=== PATIENT | female | born 1940 | race Caucasian/White ===

== ENCOUNTER 2018-01-10 16:30 | Emergency (ER) | payer MEDICARE, BC ==
[~2018-01-10] VITALS: Ht 154.9 cm; Wt 61.4 kg
[~2018-01-10 16:30] MED LIST: ADLT ASA LOW81 MG PO; ALEVE220 M1 PO; ALLEGRA-D 2424 HOUR PO; ALPRAZOLAM0.25 MG PO; AMLODIPINE10 MG PO; AMLODIPINE5 MG PO; AMOXICILLIN500 M2 PO; ASPIRIN81 M2 OR; AUGMENTIN500TAB PO; CALCIUM + D600 MG PO; CALCIUM/D PO; CEPHALEXIN500 MG PO; CLONAZEPAM1 MG OR; CLONAZEPAM2 MG PO; COLACE100 MG PO; COQ10200 MG PO; COZAAR50 MG OR; DOCUSATE CAL240 MG PO; FIORICET PO; FISH OIL1000 MG PO; FLORASTOR250 M1 PO; FLUARIX QUADRIV1 IN1 IM; FLUARIX QUADRIV1 IN2 IM; FLULAVAL IM; HYDRALAZINE25 MG PO; HYDROCODONE/ACE1 TAB PO; ICY HOT; LAMISIL250 MG PO; LASIX 40 MG TAB40 MG PO; LEVOTHROID100 MCG PO; LEVOTHYROXIN100 MC1 PO; LEVOTHYROXIN88 MC1 PO; LEVOTHYROXIN88 MCG PO; LORTAB 10 PO; LORTAB 5 OR; LORTAB 5 PO; LORTAB 7.5 PO; LYRICA50 MG PO; MEDDOSEPAK PO; MEDROL4 M1 PO; MELOXICAM7.5 MG OR; METOPROL TAR50 MG PO; METOPROLOL TART50 MG PO; MINOXIDIL2.5 MG PO; MULTIVITAMIN PO; NORCO1 TAB PO; PENTOXIFYLLI400 MG OR; POT CHLORIDE10 ME1 PO; PREDNISONE20 MG PO; RESTORIL15 MG PO; TAM75CAP PO; TIZANIDINE4 MG PO; TYLENOL PM PO; VESICARE5 MG OR; ZELBORAF240 MG PO; ZITHROMAX500 MG PO; flexeril PO
[2018-01-10 19:33] VITALS: BP 143/88
== END 2018-01-10 19:33 | disposition home or self-care (01) ==
LOC: ED 16:30
PROC: 0HQ0XZZ Repair Scalp Skin, External Approach (ICD-10-PCS; principal; 2018-01-10)
DX: S01.01XA Laceration without foreign body of scalp, initial encounter (principal); I10 Essential (primary) hypertension; G11.4 Hereditary spastic paraplegia; W18.30XA Fall on same level, unspecified, initial encounter; Y92.009 Unspecified place in unspecified non-institutional (private) residence as the place of occurrence of the external cause; Z95.5 Presence of coronary angioplasty implant and graft

== ENCOUNTER 2019-04-10 07:19 | Emergency (ER) | payer MEDICARE, BC ==
[~2019-04-10] VITALS: Ht 154.9 cm; Wt 70.0 kg
[2019-04-10 07:51] LABS: HEMATOCRIT 42.5 % (37.0-47.0); HEMOGLOBIN 13.5 g/dl (12.0-16.0); IMMATURE GRANULOCYTES 0.1 % (0.0-5.0); MEAN CELL VOLUME 89.1 fL CALC (80.0-100.0); MEAN CORPUSCULAR HGB 28.3 pG CALC (26.0-32.0); MEAN CORPUSCULAR HGB CONC 31.8 g/L CALC (32.0-36.0); NEUT# 4.63 thou/uL (2.00-7.15); RED BLOOD COUNT 4.77 mill/uL (4.20-5.60)
[2019-04-10 08:11] LABS: ANION GAP 14 (6-22 (CALC)); BUN 24 mg/dL (8-23); BUN/CREATININE RATIO 29 (12-20 (CALC)); CARBON DIOXIDE 29 mmol/l (22-30); CHLORIDE 104 mmol/l (95-108); CREATININE 0.8 mg/dL (0.5-1.0); GFR > 60 ML/MIN (>=60 (CALC)); GFR FOR AFR.AMER. > 60 ML/MIN (>=60 (CALC)); POTASSIUM 4.5 mmol/l (3.5-5.1); SODIUM 142 mmol/l (137-146)
[2019-04-10 09:20] VITALS: BP 132/103
== END 2019-04-10 10:04 ==
LOC: ED 07:19
PROVIDERS: Family Medicine
DX: R55 Syncope and collapse (principal); M79.672 Pain in left foot; I10 Essential (primary) hypertension; Z95.5 Presence of coronary angioplasty implant and graft

== ENCOUNTER 2019-07-02 20:09 | Observation (INO) | payer MEDICARE, BC ==
[~2019-07-02] VITALS: Ht 154.9 cm; Wt 65.8 kg
[2019-07-02] MEDS ORDERED: VITAMIN B-12500 MCG PO (20:20)
[2019-07-02] MEDS ORDERED: MACROBID100 MG PO (20:20)
[2019-07-02 21:01] LABS: HEMATOCRIT 41.8 % (37.0-47.0); HEMOGLOBIN 13.2 g/dl (12.0-16.0); IMMATURE GRANULOCYTES 0.6 % (0.0-5.0); MEAN CELL VOLUME 91.3 fL CALC (80.0-100.0); MEAN CORPUSCULAR HGB 28.8 pG CALC (26.0-32.0); MEAN CORPUSCULAR HGB CONC 31.6 g/L CALC (32.0-36.0); NEUT# 13.56 thou/uL (2.00-7.15); RED BLOOD COUNT 4.58 mill/uL (4.20-5.60); RED CELL DISTRI WIDTH 14.6 % (11.5-15.5)
[2019-07-02 21:11] LABS: URINE BILIRUBIN - DIPSTICK NEGATIVE (NEGATIVE); URINE BLOOD DIPSTICK TRACE-LYSED (NEGATIVE); URINE COLOR YELLOW; URINE GLUCOSE - DIPSTICK NEGATIVE (NEGATIVE); URINE KETONE NEGATIVE (NEGATIVE); URINE PH 5.5 (4.5-8.0); URINE PROTEIN - DIPSTICK TRACE mg/dL (NEG-TRACE); URINE SPECIFIC GRAVITY 1.015; URINE UROBILINOGEN - DIPSTICK 0.2 E.U./dL (0.2)
[2019-07-02 21:19] LABS: ALKALINE PHOSPHATASE 78 u/l (38-126); BILIRUBIN, TOTAL 0.4 mg/dL (0.0-1.4); BUN 25 mg/dL (8-23); BUN/CREATININE RATIO 27 (12-20 (CALC)); CHLORIDE 102 mmol/l (95-108); GFR 53 ML/MIN (>=60 (CALC)); GFR FOR AFR.AMER. > 60 ML/MIN (>=60 (CALC)); LIPASE 22 u/l (23-300); POTASSIUM 3.9 mmol/l (3.5-5.1); SGOT/AST 18 u/l (9-36); TOTAL PROTEIN 5.9 g/dL (6.3-8.2)
[2019-07-02 21:20] LABS: ALBUMIN 3.2 g/dL (3.2-5.0); ANION GAP 13 (6-22 (CALC)); CARBON DIOXIDE 23 mmol/l (22-30); SODIUM 134 mmol/l (137-146)
[2019-07-02 21:21] LABS: URINE LEUK ESTERASE SMALL (NEGATIVE); URINE NITRITE - DIPSTICK POSITIVE (Negative)
[2019-07-02 21:26] LABS: URINE BACTERIA MODERATE hpf; URINE SQUAMOUS EPITHELIAL CELL FEW EPI/hpf (0-FEW); URINE WBC 20-50 WBC/hpf (0-5)
[2019-07-02 23:24] VITALS: BP 123/57
[2019-07-03 04:00] VITALS: BP 113/55
[2019-07-03 05:34] LABS: HEMOGLOBIN 11.8 g/dl (12.0-16.0); IMMATURE GRANULOCYTES 0.4 % (0.0-5.0); MEAN CELL VOLUME 90.5 fL CALC (80.0-100.0); MEAN CORPUSCULAR HGB 28.9 pG CALC (26.0-32.0); MEAN CORPUSCULAR HGB CONC 31.9 g/L CALC (32.0-36.0); NEUT# 9.39 thou/uL (2.00-7.15); RED BLOOD COUNT 4.09 mill/uL (4.20-5.60); RED CELL DISTRI WIDTH 14.5 % (11.5-15.5)
[2019-07-03 05:56] LABS: ANION GAP 10 (6-22 (CALC)); BUN 24 mg/dL (8-23); BUN/CREATININE RATIO 28 (12-20 (CALC)); CARBON DIOXIDE 25 mmol/l (22-30); CHLORIDE 105 mmol/l (95-108); CREATININE 0.8 mg/dL (0.5-1.0); GFR > 60 ML/MIN (>=60 (CALC)); GFR FOR AFR.AMER. > 60 ML/MIN (>=60 (CALC)); POTASSIUM 4.3 mmol/l (3.5-5.1); SODIUM 136 mmol/l (137-146)
[2019-07-03 08:43] VITALS: BP 126/55
[2019-07-03 11:20] VITALS: BP 116/50
[2019-07-03 15:55] VITALS: BP 135/67
[2019-07-03 18:34] VITALS: BP 140/71
[2019-07-04] VITALS: BP 145/71
[2019-07-04 05:01] VITALS: BP 156/66
[2019-07-04 05:35] LABS: HEMATOCRIT 40.1 % (37.0-47.0); HEMOGLOBIN 12.7 g/dl (12.0-16.0); IMMATURE GRANULOCYTES 0.9 % (0.0-5.0); MEAN CELL VOLUME 90.7 fL CALC (80.0-100.0); MEAN CORPUSCULAR HGB 28.7 pG CALC (26.0-32.0); MEAN CORPUSCULAR HGB CONC 31.7 g/L CALC (32.0-36.0); NEUT# 6.35 thou/uL (2.00-7.15); RED BLOOD COUNT 4.42 mill/uL (4.20-5.60); RED CELL DISTRI WIDTH 14.6 % (11.5-15.5)
[2019-07-04 06:08] LABS: ANION GAP 12 (6-22 (CALC)); BUN 18 mg/dL (8-23); BUN/CREATININE RATIO 21 (12-20 (CALC)); CARBON DIOXIDE 23 mmol/l (22-30); CHLORIDE 107 mmol/l (95-108); CREATININE 0.9 mg/dL (0.5-1.0); GFR 60 ML/MIN (>=60 (CALC)); GFR FOR AFR.AMER. > 60 ML/MIN (>=60 (CALC)); POTASSIUM 3.9 mmol/l (3.5-5.1); SODIUM 138 mmol/l (137-146)
[2019-07-04 08:20] VITALS: BP 163/61
[2019-07-04 11:02] VITALS: BP 171/73
[2019-07-04 15:50] VITALS: BP 166/78
[2019-07-04 18:58] VITALS: BP 146/71
[2019-07-05 00:10] VITALS: BP 96/56
[2019-07-05 04:20] VITALS: BP 180/74
[2019-07-05 05:14] LABS: HEMATOCRIT 38.9 % (37.0-47.0); HEMOGLOBIN 12.4 g/dl (12.0-16.0); IMMATURE GRANULOCYTES 1.6 % (0.0-5.0); MEAN CELL VOLUME 90.7 fL CALC (80.0-100.0); MEAN CORPUSCULAR HGB 28.9 pG CALC (26.0-32.0); MEAN CORPUSCULAR HGB CONC 31.9 g/L CALC (32.0-36.0); NEUT# 8.68 thou/uL (2.00-7.15); RED BLOOD COUNT 4.29 mill/uL (4.20-5.60); RED CELL DISTRI WIDTH 14.5 % (11.5-15.5)
[2019-07-05 05:33] LABS: ANION GAP 11 (6-22 (CALC)); BUN 15 mg/dL (8-23); BUN/CREATININE RATIO 19 (12-20 (CALC)); CARBON DIOXIDE 27 mmol/l (22-30); CHLORIDE 105 mmol/l (95-108); CREATININE 0.8 mg/dL (0.5-1.0); GFR > 60 ML/MIN (>=60 (CALC)); GFR FOR AFR.AMER. > 60 ML/MIN (>=60 (CALC)); MAGNESIUM 2.1 mg/dL (1.6-2.3); SODIUM 139 mmol/l (137-146)
[2019-07-05 05:48] VITALS: BP 140/62
[2019-07-05 07:06] VITALS: BP 171/74
[2019-07-05 11:05] VITALS: BP 145/64
[2019-07-05] MEDS ORDERED: MEDDOSEPAK PO (12:20)
[2019-07-05] MEDS ORDERED: OMNICEF300 MG PO (12:20)
[2019-07-05] MEDS ORDERED: KLONOPIN2 MG PO (12:21)
[2019-07-05 15:05] VITALS: BP 135/60
== END 2019-07-05 17:48 | disposition home health service (06) ==
LOC: ED 20:09 → ED-I 21:25 → ED 21:42 → MS2 21:43
PROVIDERS: Nurse Practitioner Family; ADMIT Internal Medicine; ATTEND Internal Medicine
DX: N39.0 Urinary tract infection, site not specified (principal); J18.9 Pneumonia, unspecified organism; I10 Essential (primary) hypertension; G11.4 Hereditary spastic paraplegia; L03.116 Cellulitis of left lower limb; L03.115 Cellulitis of right lower limb; R09.02 Hypoxemia; E03.9 Hypothyroidism, unspecified; I25.10 Atherosclerotic heart disease of native coronary artery without angina pectoris; M54.5 Low back pain; N39.41 Urge incontinence; L27.1 Localized skin eruption due to drugs and medicaments taken internally; T37.8X5A Adverse effect of other specified systemic anti-infectives and antiparasitics, initial encounter; B96.20 Unspecified Escherichia coli [E. coli] as the cause of diseases classified elsewhere; Z95.5 Presence of coronary angioplasty implant and graft; Z87.891 Personal history of nicotine dependence
CPT/HCPCS: G0378; J1650; Q9967

== ENCOUNTER 2019-07-29 04:57 | Inpatient (IN) | payer MEDICARE, BC ==
[~2019-07-29] VITALS: Ht 154.9 cm; Wt 65.0 kg
[~2019-07-29 04:57] MED LIST changes: +KLONOPIN2 MG PO; +MACROBID100 MG PO; +OMNICEF300 MG PO; +VITAMIN B-12500 MCG PO
[2019-07-29 06:07] LABS: HEMATOCRIT 37.8 % (37.0-47.0); HEMOGLOBIN 11.9 g/dl (12.0-16.0); IMMATURE GRANULOCYTES 0.4 % (0.0-5.0); MEAN CELL VOLUME 91.1 fL CALC (80.0-100.0); MEAN CORPUSCULAR HGB 28.7 pG CALC (26.0-32.0); MEAN CORPUSCULAR HGB CONC 31.5 g/L CALC (32.0-36.0); NEUT# 11.19 thou/uL (2.00-7.15); RED BLOOD COUNT 4.15 mill/uL (4.20-5.60); RED CELL DISTRI WIDTH 15.3 % (11.5-15.5)
[2019-07-29 06:18] LABS: ALBUMIN 3.5 g/dL (3.2-5.0); ALKALINE PHOSPHATASE 88 u/l (38-126); ANION GAP 12 (6-22 (CALC)); BILIRUBIN, TOTAL 0.4 mg/dL (0.0-1.4); BUN 18 mg/dL (8-23); BUN/CREATININE RATIO 23 (12-20 (CALC)); CARBON DIOXIDE 27 mmol/l (22-30); CHLORIDE 102 mmol/l (95-108); CREATININE 0.8 mg/dL (0.5-1.0); GFR > 60 ML/MIN (>=60 (CALC)); GFR FOR AFR.AMER. > 60 ML/MIN (>=60 (CALC)); LIPASE 17 u/l (23-300); POTASSIUM 3.9 mmol/l (3.5-5.1); SGOT/AST 13 u/l (9-36); SODIUM 137 mmol/l (137-146); TOTAL PROTEIN 6.3 g/dL (6.3-8.2)
[2019-07-29 06:26] LABS: AMYLASE < 30 u/l (30-110)
--- NOTE | 2019-07-29 06:50 | NUR ---
REPORT FROM RUFINO SWAIN. PT IN CT SCAN AT THIS TIME.
--- NOTE | 2019-07-29 07:30 | NUR ---
PT DENIES ANY DIARRHEA AT THIS TIME. PT AWARE OF NEED FOR URINE SAMPLE. PT REFUSED PURE WICK AND WAS PLACED ON BED BASILIO. CALL GEO PENA.
--- NOTE | 2019-07-29 07:45 | NUR ---
PT INCONTINENT OF URINE. LINENS CHAGED AND PT CLEANED. PURE WICK PLACED AND URINE SAMPLE COLLECTED.
[2019-07-29 07:52] LABS: URINE BILIRUBIN - DIPSTICK NEGATIVE (NEGATIVE); URINE BLOOD DIPSTICK NEGATIVE (NEGATIVE); URINE COLOR YELLOW; URINE GLUCOSE - DIPSTICK NEGATIVE (NEGATIVE); URINE KETONE NEGATIVE (NEGATIVE); URINE LEUK ESTERASE NEGATIVE (NEGATIVE); URINE NITRITE - DIPSTICK NEGATIVE (Negative); URINE PROTEIN - DIPSTICK NEGATIVE (NEG-TRACE); URINE SPECIFIC GRAVITY <=1.005; URINE UROBILINOGEN - DIPSTICK 0.2 E.U./dL (0.2)
--- NOTE | 2019-07-29 07:55 | NUR ---
PT NOT ON 02 AT HOME O2 TITRATED DOWN AND 02 SATS DROPPED TO 89% MD NOTIFIED. WILL DO ABG ON ROOM AIR.
[2019-07-29 08:06] LABS: C. DIFFICILE TOXIN A&B POSITIVE (NEGATIVE)
[2019-07-29] MEDS ORDERED: LEVOTHYROXIN100 MCG PO (08:23)
[2019-07-29] MEDS ORDERED: DITROPAN5 MG/TA1 PO (08:23)
--- NOTE | 2019-07-29 08:30 | NUR ---
SAO2 97% 3L ON NC. PT RESTING COMFORTABLY IN STRETCHER AND DENIES ANY NEEDS AT THIS TIME. CALL GUARDADO WITHIN REACH.
--- NOTE | 2019-07-29 09:30 | NUR ---
LISSY FROM DIRECTOR HOME AT BEDSIDE TO DO PORTABLE US.
--- NOTE | 2019-07-29 09:45 | NUR ---
REPORT TO RUFINO MENDIETA.
--- NOTE | 2019-07-29 09:45 | NUR ---
PT MEDICATED WITH ABX PRESCRIBED. PT REPORTS 02/06 ABD CRAMPING AT THIS TIME. CALL GUARDADO WITHIN REACH.
--- NOTE | 2019-07-29 09:52 | NUR ---
REPORT GIKERON BY ETHAN
--- NOTE | 2019-07-29 11:06 | NUR ---
CALLED ICU FOR PT REPORT AND GHAZAL STATED THEY WILL CALL BACK IN A FEW MINS.
--- NOTE | 2019-07-29 11:07 | NUR ---
PT RESTING IN STRETCHER, DENIES ANY NEEDS AT THIS TIME.
--- NOTE | 2019-07-29 11:10 | NUR ---
CALLED ICU AND GHAZAL STATED NOT BEING ABLE TO GIVE REPORT BECAUSE IT IS JUST TWO OF THEM
--- NOTE | 2019-07-29 11:30 | NUR ---
PT TRANSPORTED TO ICU 5 VIA STRETCHER MAINTAINING CONTACT PRE. PT IS SABLE AND IN NO DISTRESS. CARE ASSUMED TO ASHLEY
[2019-07-29 11:40] VITALS: BP 145/49
--- NOTE | 2019-07-29 11:40 | NUR ---
female pt received to ICU bed 5 as Med/Surg overflow; no apparent distress noted; pt unable to transfer self to bed; transferred to bed x3 staff; admission assessment completed at this time; pt alert and oriented; denies pain at current; c/c of diarrhea and abd cramps x2 weeks per pt; no n/v noted at this time; resp even and unlabored; lungs clear/ rhonchi bases; skin color wnl; o2 per nc; track inspector cough noted; hr reg; weak pedal pulses; 1+ edema noted to ble; sr on monitor; abd soft with bs present; lg loose bm noted/ pericare per staff at this time; urinary incont noted; pt declined purewick catheter; #18 flushed and patent; no redness or edema noted at site; slight redness noted to ble; repositioned; plan of care/ meds explained; call light within reach; will continue to monitor
--- NOTE | 2019-07-29 14:05 | NUR ---
awake in bed; pericare for lg urinary incont; purewick offered for accurate urine output and declined; sr on monitor; iv intact and patent; call light within reach
[2019-07-29 16:00] VITALS: BP 133/64
--- NOTE | 2019-07-29 16:00 | NUR ---
awake in bed conversing on cell phone; no apparent distress noted; pt offers no complaints; iv intact and patent; sr on monitor; call light within reach
--- NOTE | 2019-07-29 18:30 | NUR ---
awake in bed conversing on cell phone; no apparent distress noted; iv intact and patent; no redness or edema noted at site; sr on monitor; call light within reach
[2019-07-29 19:30] VITALS: BP 142/56
--- NOTE | 2019-07-29 19:30 | NUR ---
awake. no acute distress. o2 cont per nc. quality assurance monitor chassis shows sinus rhythm pvcs. voided incont of urine. emilie care given, diaper changed. fall & contact plus precautions cont.
--- NOTE | 2019-07-29 21:10 | NUR ---
klonopin 1mg po given per request for sleep.
--- NOTE | 2019-07-29 21:11 | NUR ---
PT MEDICATED ORDERS PROVIDE. PT ASSISTED W/PO FLUIDS. DENIES ANY OTHER NEEDS AT THIS TIME. CALL LIGHT LEFT W/IN REACH, IVF RUNNING TO #22LH.
[2019-07-30] VITALS: BP 135/60
--- NOTE | 2019-07-30 00:01 | NUR ---
awakens easily. no resp diff. school lunch monitor shows sinus rhythm 1st degree avb pvcs hr 68.
[2019-07-30 04:00] VITALS: BP 106/51
--- NOTE | 2019-07-30 04:00 | NUR ---
eyes closed. no apparent distress. media monitor shows sinus mei 1st degree avb pvcs hr 52.
--- NOTE | 2019-07-30 05:00 | NUR ---
lab here. blood drawn.
[2019-07-30 05:31] LABS: HEMATOCRIT 38.4 % (37.0-47.0); HEMOGLOBIN 12.1 g/dl (12.0-16.0); MEAN CELL VOLUME 90.8 fL CALC (80.0-100.0); MEAN CORPUSCULAR HGB 28.6 pG CALC (26.0-32.0); MEAN CORPUSCULAR HGB CONC 31.5 g/L CALC (32.0-36.0); RED BLOOD COUNT 4.23 mill/uL (4.20-5.60); RED CELL DISTRI WIDTH 14.9 % (11.5-15.5)
[2019-07-30 05:45] LABS: ANION GAP 11 (6-22 (CALC)); BUN 15 mg/dL (8-23); BUN/CREATININE RATIO 23 (12-20 (CALC)); CARBON DIOXIDE 22 mmol/l (22-30); CHLORIDE 110 mmol/l (95-108); CREATININE 0.7 mg/dL (0.5-1.0); GFR > 60 ML/MIN (>=60 (CALC)); GFR FOR AFR.AMER. > 60 ML/MIN (>=60 (CALC)); POTASSIUM 4.5 mmol/l (3.5-5.1); SODIUM 138 mmol/l (137-146)
--- NOTE | 2019-07-30 06:00 | NUR ---
awakens easily. incont of urine. pericare given & diaper changed.
--- NOTE | 2019-07-30 07:00 | NUR ---
REPORT RECEIVED FROM SUMIT SAWYER. PT RESTING IN BED SEMI FOWLERS WITH EYES CLOSED; AWAKENS TO VERBAL STIMULI. ALERT AND ORIENTED. DENIES PAIN. RESPIRATIONS EVEN AND UNLABORED ON OXYGEN 2L VIA NC. ON CONTACT PLUS PRECAUTIONS FOR CDIFF. IV FLUIDS INFUSING AT 100ML/HR PER ORDERS. VSS. PLAN OF CARE REVIEWED. PT ENCOURAGED TO VERBALIZE CONCERNS. STATES UNDERSTANDING. SAFETY MEASURES IN PLACE. CALL LIGHT WITHIN REACH.
--- NOTE | 2019-07-30 07:15 | NUR ---
ASSESSMENT COMPLETED AND PT NOW SITTING UP EATING BREAKFAST. SOME WHEEZING THROUGHOUT LUNG RODRIGUES; HYPERACTIVE BS; 1+ ANKLE EDEMA.
[2019-07-30 08:04] VITALS: BP 114/58
--- NOTE | 2019-07-30 09:50 | NUR ---
KATALINA, DIRECTOR OF RECRUITMENT AT BEDSIDE FOR EVAL.
--- NOTE | 2019-07-30 10:47 | NUR ---
PT USED CALL LIGHT TO REPORT THAT SHE HAD AN INCONTINENT BOWEL MOVEMENT; ALSO INCONTINENT OF URINE. SMALL SOFT BOWEL MOVEMENT. KIMBERLYN CARE PERFORMED AND NEW BRIEF APPLIED.
[2019-07-30 11:48] VITALS: BP 132/85
--- NOTE | 2019-07-30 13:00 | NUR ---
INCONTINENT AGAIN OF SMALL BOWEL MOVEMENT AND SMALL AMOUNT OF URINE. ASSISTED WITH REPOSITIONING IN BED. NO OTHER REQUESTS OR CONCERNS AT THIS TIME.
[2019-07-30 15:41] VITALS: BP 139/63
--- NOTE | 2019-07-30 15:43 | NUR ---
PT SITTING UP IN BED WATCHING TV; ALERT AND ORIENTED. C/O SORE THROAT SINCE THIS MORNING. RESPIRATIONS EVEN AND UNLABORED ON OXYGEN 2L VIA NC. SAFETY MEASURES IN PLACE. CALL LIGHT WITHIN REACH.
--- NOTE | 2019-07-30 16:00 | NUR ---
REPORT FROM Bobby GIL RN. ASSUMED PT. CARE
--- NOTE | 2019-07-30 16:41 | NUR ---
DR. THOMPSON AND KATALINA AT BEDSIDE TO ASSESS PT.
--- NOTE | 2019-07-30 17:05 | NUR ---
CURTAINS PULLED PER PATIENT REQUEST. VOICES NO OTHER COMPLAINTS OR NEEDS AT THIS TIME. REMAINS STABLE. DENIES PAIN.
--- NOTE | 2019-07-30 17:49 | NUR ---
DINNER SERVED TO PATIENT AT THIS TIME. DENIES OTHER COMPLAINTS OR NEEDS. CALL LIGHT REMAINS WITHIN REACH.
[2019-07-30 19:15] VITALS: BP 143/65
--- NOTE | 2019-07-30 19:15 | NUR ---
pt said "i didn't see a doctor today." male nurse intructed this news writer physician, campground caretaker & nurse was in the room @ the same time.
--- NOTE | 2019-07-30 19:15 | NUR ---
awake. nad. electronic device monitor shows sinus rhythm 1st degree avb pvcs hr 89. #22 lt hand ns infusing @ 100cchr. incont of urine & stool. requested "a man not help." request denied. instructed pt the other nurse would help this underwriter solicitation director. cleansed, diaper changed. po fluids taken well. requires much care for all needs but needs encourgement to assist with care. fall & contact plus precautions cont. c/o pain @ iv site. supervisor tree fruit and nut farming notified of need for new iv.
--- NOTE | 2019-07-30 21:00 | NUR ---
klonopin 1mg po per request for sleep.
[2019-07-31 00:01] VITALS: BP 152/71
--- NOTE | 2019-07-31 00:01 | NUR ---
cardiac cath lab manager shows sinus rhythm 1st degree avb hr 70.
--- NOTE | 2019-07-31 02:00 | NUR ---
eyes closed. no distress. conveyor monitor shows sinus mei 1st degree avb hr 56.
--- NOTE | 2019-07-31 05:16 | NUR ---
lab here. blood drawn.
[2019-07-31 05:50] LABS: HEMATOCRIT 34.5 % (37.0-47.0); HEMOGLOBIN 10.9 g/dl (12.0-16.0); IMMATURE GRANULOCYTES 0.6 % (0.0-5.0); MEAN CELL VOLUME 91.8 fL CALC (80.0-100.0); MEAN CORPUSCULAR HGB CONC 31.6 g/L CALC (32.0-36.0); NEUT# 16.71 thou/uL (2.00-7.15); RED BLOOD COUNT 3.76 mill/uL (4.20-5.60); RED CELL DISTRI WIDTH 15.3 % (11.5-15.5)
[2019-07-31 06:06] LABS: ANION GAP 10 (6-22 (CALC)); BUN 14 mg/dL (8-23); BUN/CREATININE RATIO 21 (12-20 (CALC)); CARBON DIOXIDE 22 mmol/l (22-30); CHLORIDE 111 mmol/l (95-108); CREATININE 0.7 mg/dL (0.5-1.0); GFR > 60 ML/MIN (>=60 (CALC)); GFR FOR AFR.AMER. > 60 ML/MIN (>=60 (CALC)); POTASSIUM 3.9 mmol/l (3.5-5.1); SODIUM 139 mmol/l (137-146)
--- NOTE | 2019-07-31 07:15 | NUR ---
pt resting in bed with eyes closed; no apparent distress noted; pt easily aroused; assessment completed at this time; pt alert and oriented; complaints of pain to ray from blood pressure cuff/ cuff removed; offers no other complaints; no n/v noted; resp even and unlabored; lungs clear/ diminished bases; skin color wnl; o2 per nc; hr reg; wk pedal pulses; 1+ edema noted to ble; feet/ legs elevated; sr/pvc on monitor; abd soft with bs present; no bm noted per journalists and other writers; brief cdi; contact + prec; pt incont of urine; no urine to inspect; brief cdi; #22 in rfa patent with ivf infusing without complication; no redness or edema noted at site; plan of care/ am meds explained; self repositioning explained; increase in activity including up to chair explained; call light within reach; will continue to monitor
[2019-07-31 08:00] VITALS: BP 136/63
--- NOTE | 2019-07-31 08:09 | NUR ---
awake in bed; no apparent distress noted; pt offers no complaints; o2 per nc; iv intact and patent; call light within reach; will continue to monitor
--- NOTE | 2019-07-31 09:10 | NUR ---
complete bath per staff; complete linen change; up to recliner x2 max assist; will continue to monitor
--- NOTE | 2019-07-31 10:15 | NUR ---
pt awake in recliner; offers no complaints; no apparent distress noted; o2 per nc; iv intact and patent; no redness or edema noted at site; call light within reach; will continue to monitor
--- NOTE | 2019-07-31 11:14 | NUR ---
PT present at beside to eval and treat pt
--- NOTE | 2019-07-31 11:25 | NUR ---
HEALTH CARE ANALYST Tanika present at bedside to assess pt and discuss plan of care
--- NOTE | 2019-07-31 11:39 | NUR ---
bed assisgnment requested; staff to return call
--- NOTE | 2019-07-31 12:10 | NUR ---
awake in recliner; offers no complaints; no distress noted; iv patent; fluids infusing at 10cc/hr (reduced per CARBON LAMP CLEANER); sr on monitor; call light within reach; will continue to monitor
[2019-07-31 12:40] VITALS: BP 129/49
--- NOTE | 2019-07-31 13:32 | NUR ---
report called to Brionna Ruth RN; pt to transfer to M/S room 276
--- NOTE | 2019-07-31 14:04 | NUR ---
pt transferred to med surg room 276 via wc with portable o2 in stable condition; belongings sent with pt; assist to bed; update provided to Brionna Ruth RN
--- NOTE | 2019-07-31 14:05 | NUR ---
RECEIVED PATIENT INTO ROOM 276 FROM ICU. PATIENT IS AWAKE, ALERT AND ORIENTED X3. RESP NON-LABORED AT REST. O2 ON AT 2 L NC. LUNGS CLEAR, DIINISHED IN BASES BILATERALLY. SALINE LOCK IN RFA #22, SITE BENIGN. BILATERAL LOWER LEGS WITH 1+ PITTING EDEMA AND ERYTHEMA. DISCUSSED PLAN OF CARE. DENIES NEEDS AT THIS TIME. CALL GUARDADO IN REACH.
[2019-07-31 14:52] VITALS: BP 129/62
--- NOTE | 2019-07-31 16:00 | NUR ---
RESTING QUIETLY IN BED.
--- NOTE | 2019-07-31 18:00 | NUR ---
SITTING UP IN BED EATING DINNER. NO COMPLAINTS VOICED.
[2019-07-31 19:41] VITALS: BP 129/67
--- NOTE | 2019-07-31 20:15 | NUR ---
PT. A/O X3. ABLE TO MAKE NEEDS KNOWN. NO ACUTE DISTRESS NOTED. NO C/O PAIN OR DISCOMFORT. MEDICATIONS ADMINISTERED PER MD ORDER. TOLERATED WELL. PT. AWAKE IN BED WITH CALL LIGHT WITHIN REACH
--- NOTE | 2019-08-01 01:31 | NUR ---
PT. RESTING IN BED WITH EYES CLOSED. NO ACUTE DISTRESS NOTED. CALL LIGHT WITHIN REACH.
[2019-08-01 05:24] LABS: HEMATOCRIT 38.2 % (37.0-47.0); HEMOGLOBIN 11.9 g/dl (12.0-16.0); IMMATURE GRANULOCYTES 0.5 % (0.0-5.0); MEAN CORPUSCULAR HGB 28.7 pG CALC (26.0-32.0); MEAN CORPUSCULAR HGB CONC 31.2 g/L CALC (32.0-36.0); NEUT# 10.07 thou/uL (2.00-7.15); RED BLOOD COUNT 4.15 mill/uL (4.20-5.60); RED CELL DISTRI WIDTH 15.4 % (11.5-15.5)
[2019-08-01 05:40] VITALS: BP 134/62
[2019-08-01 05:45] LABS: ANION GAP 9 (6-22 (CALC)); BUN 12 mg/dL (8-23); BUN/CREATININE RATIO 19 (12-20 (CALC)); CARBON DIOXIDE 25 mmol/l (22-30); CHLORIDE 107 mmol/l (95-108); CREATININE 0.6 mg/dL (0.5-1.0); GFR > 60 ML/MIN (>=60 (CALC)); GFR FOR AFR.AMER. > 60 ML/MIN (>=60 (CALC)); POTASSIUM 3.9 mmol/l (3.5-5.1); SODIUM 137 mmol/l (137-146)
--- NOTE | 2019-08-01 06:17 | NUR ---
pt. reting in bed with eyes closed. no acute distress noted. ABT therapy continued per MD order d/t c-difficile. no adverse reactions noted. will continue to monitor. bed in the lowest position. call light within reach
[2019-08-01 08:00] VITALS: BP 127/50
--- NOTE | 2019-08-01 11:06 | NUR ---
[facility] SCORE TODAY: 11 POINTS PT WILL BEENFIT FROM IN-PT REHAB FOR GEN. CNDITIONING/STRENGTHENING, GAIT AND BALANCE TRAINING. SHE WILL BE UNSAFE TO BE DISCHARGED HOME. PT WAS SEEN SUPINE IN BED REPORTING THAT HER DIAPER NEEDED TO BE CHANGED. SHE WAS GIVEN MIN A TO ROLL AND SCOOT ON EOB PRIOR TO STANDING. MIN A ON STATIC STANDING THEN AMBULATED FROM BED TO THE SHOWER IN A VERY SLOW PACE WITH RW AND MIN A OF 2. INSTABILITY OF B LE AFFECTING HER BALANCE WAS NOTED. SHE THEN WAS GIVEN VCS TO PROPERLY SIT IN THE COMMODE. LEFT PT WITH EDWIN KONG. NO ADVERSE RXNS NOTED OR REPORTED.
[2019-08-01 15:50] VITALS: BP 151/60
[2019-08-01 19:00] VITALS: BP 112/57
--- NOTE | 2019-08-01 19:50 | NUR ---
ASSESSMENT COMPLETED. NO DISTRESS NOTED. TRACE EDEMA NOTED TO BLE AND ELEVATED ONTO PILLOW. IV SITE PATENT TO LEFT ARM AND FLUSHES WELL. OLD IV SITE REMOVED FROM RFA AND CATHETER TIP INTACT. PT. UPDATED WITH POC AND VERBALIZES UNDERSTANDING. CALL LIGHT IS IN REACH.
--- NOTE | 2019-08-01 22:10 | NUR ---
PT. REQUESTS DARLIN VILLARREAL AND MEDICATED WITH THIS ALONG WITH SCHED MEDS. REASSESSED TEMP AND WNL. ENCOURAGED TO CALL FOR ANY NEEDS. CALL LIGHT IS IN REACH.
--- NOTE | 2019-08-01 23:20 | NUR ---
PT. C/O BLE PAIN AND MEDICATED WITH ORDERED TYLENOL, WILL REASSESS. PT. ALSO REPOSITIONED TO ASSIST WITH PAIN ONTO LEFT SIDE WITH BILATERAL HEELS ELEVTAED. PO FLUIDS OFFERED.
--- NOTE | 2019-08-02 03:05 | NUR ---
RESTING IN BED WITH EYES CLOSED. RESP. EVEN AND UNLABORED.
[2019-08-02 04:00] VITALS: BP 123/59
--- NOTE | 2019-08-02 05:21 | NUR ---
SCHED MED GIVEN. DENIES NEEDS/PAIN. ENCOURAGED TO CALL FOR ANY NEEDS. CALL LIGHT IS IN REACH.
[2019-08-02 08:20] VITALS: BP 159/74
--- NOTE | 2019-08-02 08:30 | NUR ---
ASSESSMENT DONE. PT IS A&OX3. PT DENIES PAIN AT THIS TIME. SAFETY PRECAUTIONS REINFORCED AND CALL LIGHT IN REACH.
[2019-08-02 09:31] LABS: HEMATOCRIT 42.3 % (37.0-47.0); HEMOGLOBIN 13.1 g/dl (12.0-16.0); MEAN CELL VOLUME 90.8 fL CALC (80.0-100.0); MEAN CORPUSCULAR HGB 28.1 pG CALC (26.0-32.0); RED BLOOD COUNT 4.66 mill/uL (4.20-5.60); RED CELL DISTRI WIDTH 15.1 % (11.5-15.5)
[2019-08-02 09:47] LABS: ANION GAP 11 (6-22 (CALC)); BUN 10 mg/dL (8-23); BUN/CREATININE RATIO 15 (12-20 (CALC)); CARBON DIOXIDE 29 mmol/l (22-30); CHLORIDE 101 mmol/l (95-108); CREATININE 0.6 mg/dL (0.5-1.0); GFR > 60 ML/MIN (>=60 (CALC)); GFR FOR AFR.AMER. > 60 ML/MIN (>=60 (CALC)); POTASSIUM 3.8 mmol/l (3.5-5.1); SODIUM 137 mmol/l (137-146)
--- NOTE | 2019-08-02 12:00 | NUR ---
PT IS RESITING BED WITH NO S/S OF DISTRESS NOTED. PT DENIES NEEDS AT THIS TIME. CALL LIGHT IN REACH.
--- NOTE | 2019-08-02 13:46 | NUR ---
[facility] SCORE TODAY: 11 POINTS PT WILL BENEFIT FROM IN-PT REHAB FOR GEN CONDITIONING. SHE WAS SEEN SUPINE ON BED RELUCTANT TO PARTICIPATE WITH THERAPY, HOWEVER AGREED AFTER THERAPIST EXPLAINED THE BENEFITS. SHE MANAGED TO SUPINE>SIT WITH MODIFIED INDEP; STS W/ MIN A. PT WAS STILL VERY WEAK WITH UNSTABLE GAIT. SHE AMBULATED FROM BED TO THE RECLINER ON THE OTHER SIDE OF THE BED ~ 10 FT THEN SAT DOWN IN THE BSC SHE SUDDENLY NEEDED TO BE CLEANED. MS. NAVARRETE WAS CRYING AND APPEARED TO BE IN DESPAIR FEELING FRUSTRATED ABOUT HER CURRENT CONDITION. THERAPIST LISTENED AND GIVEN HER REASSURANCE THAT SHE WILL DO BETTER NEXT TIME.
[2019-08-02 15:46] VITALS: BP 140/64
--- NOTE | 2019-08-02 16:06 | NUR ---
PT IS RESTING IN BED. PT DENIES NEEDS AT THIS TIME. CALL LIGHT IN REACH.
[2019-08-02 19:13] VITALS: BP 147/67
--- NOTE | 2019-08-02 20:25 | NUR ---
PT MEDICATED ORDERS PROVIDE AND ASSESSMENT COMPLETED. PT TALKED ABOUT NEEDING TO GET OUT OF THE BED MORE AND FEELING ISOLATED. I TALKED W/PT EXTENSIVELY REGARDING HER SITUATION/CARE. SHE IS ASKING FOR RESULTS TO BE ORDERED FROM HER CANCER DOCTOR OF A PETSCAN PERFORMED IN MAY REGARDING HER HISTORY OF CANCER. I OFFERED TO WALK W/PT AT THIS TIME AT LEAST AROUND THE ROOM, BUT SHE STATED "IT IS TOO LATE, TOMORROW." PT LEFT WORKING ON CROSSWORD PUZZLE IN BED/REPOSITIONED FOR COMFORT, HEELS FLOATING AND ELEVATED AND TV ON.
--- NOTE | 2019-08-02 23:43 | NUR ---
PT MEDICATED ORDERS PROVIDE. SHE WAS SLEEPING SOUNDLY WHEN I ENTERED THE ROOM. DENIES ANY OTHER NEEDS. ASSISTED PT W/PO FLUIDS AND REPOSITIONING IN BED. ENCOURAGED PT TO CALL NEEDS ARISE, CALL LIGHT W/IN REACH.
--- NOTE | 2019-08-03 02:05 | NUR ---
PT SLEEPING, NO S/O DISTRESS NOTED. CALL LIGHT AT SIDE.
[2019-08-03 03:48] VITALS: BP 145/65
--- NOTE | 2019-08-03 05:37 | NUR ---
PT MEDICATED ORDERS PROVIDE. NO S/O DISTRESS NOTED. PT BRIEF IS DRY AT THIS TIME, AIDE PROVIDED KIMBERLYN-CARE. PT DENIES ANY OTHER NEEDS AND IS RETURNING TO SLEEP.
[2019-08-03 07:13] LABS: HEMATOCRIT 39.6 % (37.0-47.0); HEMOGLOBIN 12.4 g/dl (12.0-16.0); MEAN CELL VOLUME 90.4 fL CALC (80.0-100.0); MEAN CORPUSCULAR HGB 28.3 pG CALC (26.0-32.0); MEAN CORPUSCULAR HGB CONC 31.3 g/L CALC (32.0-36.0); RED BLOOD COUNT 4.38 mill/uL (4.20-5.60); RED CELL DISTRI WIDTH 15.1 % (11.5-15.5)
[2019-08-03 07:20] LABS: ANION GAP 8 (6-22 (CALC)); BUN 11 mg/dL (8-23); BUN/CREATININE RATIO 17 (12-20 (CALC)); CARBON DIOXIDE 30 mmol/l (22-30); CHLORIDE 102 mmol/l (95-108); CREATININE 0.6 mg/dL (0.5-1.0); GFR > 60 ML/MIN (>=60 (CALC)); GFR FOR AFR.AMER. > 60 ML/MIN (>=60 (CALC)); POTASSIUM 3.8 mmol/l (3.5-5.1); SODIUM 136 mmol/l (137-146)
--- NOTE | 2019-08-03 07:54 | NUR ---
PT SITTING IN BED. A&O X3. NO DISTRESS NOTED. O2 VIA NC @ 2.5 L/MIN. PT DENIES BEING O2 DEPENDENT. EXPLAINED TO THE PT THAT WE WOULD ATTEMPT TO GET HER UP IN THE RECLINER TODAY. PT VERBALIZED UNDERSTANDING. PER PT SHE USES A WALKER TO WALK SHORT DISTANCES BUT AN ELECTRICAL WHEELCHAIR TO MOVE LONG DISTANCES. EXPLAINED TO THE PT THAT AN ATTEMPT TO OBTAIN A WALKER AND AMBULATE WOULD BE MADE. PT VERBALIZED UNDERSTANDING. ASSESSMENT COMPLETED. CALL LIGHT IN REACH. CONTINUE TO MONITOR.
[2019-08-03 09:24] VITALS: BP 128/60
--- NOTE | 2019-08-03 10:20 | NUR ---
PT SITTING IN BED SLEEPING. NO DISTRESS NOTED. O2 SATURATION @ 100%. CONTINUE TO MONITOR
--- NOTE | 2019-08-03 14:06 | NUR ---
PT SITTING IN BED SLEEPING. NO DISTRESS NOTED. EVEN AND UNLABORED BREATHING. WOKE PT UP TO ASK IF SHE WAS FEELING SOB, PT DENIED. C/O OF SOME LIGHTHEADNESS EARLIER, BUT IT HAS SUBSIDED. EXPLAINED TO THE PT THAT I WOULD RETURN TO CHECK O2 SATURATION, PT VERBALIZED UNDERSTANDING.
[2019-08-03 15:32] LABS: HEMATOCRIT 40.3 % (37.0-47.0); HEMOGLOBIN 12.5 g/dl (12.0-16.0); IMMATURE GRANULOCYTES 1.2 % (0.0-5.0); MEAN CELL VOLUME 90.8 fL CALC (80.0-100.0); MEAN CORPUSCULAR HGB 28.2 pG CALC (26.0-32.0); NEUT# 8.11 thou/uL (2.00-7.15); RED BLOOD COUNT 4.44 mill/uL (4.20-5.60); RED CELL DISTRI WIDTH 15.1 % (11.5-15.5)
[2019-08-03 15:35] VITALS: BP 119/68
--- NOTE | 2019-08-03 16:50 | NUR ---
ASSISTED PT TO THE RECLINER. WALKER USED BY PT TO HELP AMBULATE. PT TOLERATED WELL. EXPLAINED TO THE PT THAT SHE WAS ENCOURAGED TO EAT DINNER AND SUPPER SITTING IN THE RECLINER. PT VERBALIZED UNDERSTANDING.
--- NOTE | 2019-08-03 17:50 | NUR ---
PT SITTING IN RECLINER EATING SUPPER . NO DISTRESS NOTED. PT DENIES FEELING SOB. CALL LIGHT IN REACH CONTINUE TO MONITOR.
[2019-08-03 19:01] VITALS: BP 130/55
--- NOTE | 2019-08-03 21:30 | NUR ---
PT MEDICATED ORDERS PROVIDE AND ASSISTED FROM RECLINER TO THE BED. PT DENIES PAIN,N/V OR SOB AT THIS TIME. NO S/O DISTRESS. PT ASSESSMENT COMPLETED AND PT DEMONSTRATED USE OF IS @750 RESPIRATORY EFFORT. PT IS VERY WEAK AND SHUFFLES FEET WHEN AMBULATING, BUT WAS ABLE TO HOLD HER OWN WEIGHT FROM CHAIR TO BED.
--- NOTE | 2019-08-04 01:25 | NUR ---
PT SLEEPING W/LIGHTS AND TV OUT. NO S/O DISTRESS NOTED.
--- NOTE | 2019-08-04 05:51 | NUR ---
PT MEDICATED ORDERS PROVIDE. PT PROVIDED BLANKET FOR COMFORT. DENIES ANY OTHER NEEDS. DENIES NEEDING CLEANED UP AT THIS TIME.
[2019-08-04 05:53] VITALS: BP 158/68
--- NOTE | 2019-08-04 07:49 | NUR ---
PT SITTING IN BED A&O X3.. NO DISTRESS NOTED. O2 VIA NC @2.5 L. UPON REPORT IT WAS VERBALIZED THAT PTS O2 SAT WAS IN THE 80'S AND O2 WAS REAPPLIED. EXPLAINED TO THE PT THAT SHE WOULD BE TAKEN OFF THE O2 NC AND MONITORED. PT VERBALIZED UNDERSTANING. EXPLAINED TO THE PT THAT SHE SHOULD SIT IN THE RECLINER THROUGHOUT THE DAY. PT VERBALIZED UNDERSTANDING. THE ATTEMPT TO AMBULATE WILL BE MADE. DISCUSSED POC. ASSESSMENT COMPLETED. CALL LIGHT IN REACH. CONTINUE TO MONITOR.
[2019-08-04 07:54] VITALS: BP 128/70
--- NOTE | 2019-08-04 12:07 | NUR ---
PT TAKEN OFF OF O2 NC. O2 SAT 95% RA. NO SOB NOTED. EXPLAINED TO PT THAT IF SOB WAS FELT TO PLACE O2 NC BACK AND NOTIFY ME. PT VERBALIZED UNDERSTANDING. CALL LIGHT IN REACH. CONTINUE TO MONITOR.
--- NOTE | 2019-08-04 15:20 | NUR ---
PT SITTING IN RECLINER SLEEPING. NO DISTRESS NOTED. CALL LIGHT IN REACH. CONTINUE TO MONITOR.
[2019-08-04 17:00] VITALS: BP 113/51
[2019-08-04 19:45] VITALS: BP 141/59
--- NOTE | 2019-08-04 19:50 | NUR ---
PT SITTING IN RECLINER, NO S/O DISTRESS NOTED. PT DENIES ANY NEEDS AT THIS TIME. CALL LIGHT AT SIDE.
--- NOTE | 2019-08-04 23:00 | NUR ---
PT MEDICATE ORDERS PROVIDE AND PT REPOSITIONED. PT PROVIDED A SNACK, DENIES ANY OTHER NEEDS. CALL LIGHT AT SIDE AND PT ENCOURAGED TO CALL. LABS/TESTS AND POC DISCUSSED W/PT AT THIS TIME.
[2019-08-05 05:38] LABS: HEMATOCRIT 36.5 % (37.0-47.0); HEMOGLOBIN 11.7 g/dl (12.0-16.0); MEAN CELL VOLUME 89.2 fL CALC (80.0-100.0); MEAN CORPUSCULAR HGB 28.6 pG CALC (26.0-32.0); MEAN CORPUSCULAR HGB CONC 32.1 g/L CALC (32.0-36.0); RED BLOOD COUNT 4.09 mill/uL (4.20-5.60)
[2019-08-05 05:45] VITALS: BP 129/52
--- NOTE | 2019-08-05 05:45 | NUR ---
PT MEDICATED ORDERS PROVIDE W/ANTIBIOTIC THERAPY. PT DENIES ANY OTHER NEEDS. REPORTS FEELING VERY "DRY." PO FLUIDS AVAILABLE, PT INTAKE WHILE I WAS IN THE ROOM 120CC OF WATER.
[2019-08-05 05:49] LABS: ALKALINE PHOSPHATASE 54 u/l (38-126); ANION GAP 7 (6-22 (CALC)); BILIRUBIN, TOTAL 0.3 mg/dL (0.0-1.4); BUN 14 mg/dL (8-23); BUN/CREATININE RATIO 22 (12-20 (CALC)); CARBON DIOXIDE 30 mmol/l (22-30); CHLORIDE 103 mmol/l (95-108); CREATININE 0.6 mg/dL (0.5-1.0); GFR > 60 ML/MIN (>=60 (CALC)); GFR FOR AFR.AMER. > 60 ML/MIN (>=60 (CALC)); POTASSIUM 3.5 mmol/l (3.5-5.1); SGOT/AST 13 u/l (9-36); SODIUM 137 mmol/l (137-146)
[2019-08-05 05:54] LABS: ALBUMIN 2.5 g/dL (3.2-5.0); TOTAL PROTEIN 4.7 g/dL (6.3-8.2)
--- NOTE | 2019-08-05 07:20 | NUR ---
REPORT RECEIVED FROM RUFINO MURPHY;PT RESTING IN SEMI FOWLERS POSITION;INTRODUCED SELF TO PT AND POC DISCUSSED;RESPIRATIONS EVEN AND UNLABORED ON O2 @ 2L VIA NC;PT DENIES ANY CURRENT PAIN OR NEEDS;CONTACT PLUS PRECAUTIONS IN PLACE;PT ENCOURAGED TO CALL FOR ASSISTANE IF NEEDED;FALL PRECAUTIONS IN PLACE WITH CALL LIGHT IN REACH;WILL CONTINUE TO MONITOR
--- NOTE | 2019-08-05 08:50 | NUR ---
PT OOB RESTING IN RECLINER,A&O X3;VS OBTAINED AND ASSESSMENT COMPLETED;PT DENIES ANY CURRENT PAIN OR DISCOMFORTS,PAIN SCALE AND REPORTING EDUCATED;RESPIRATIONS EVEN AND UNLABORED,SHALLOW ON O2 @ 2L VIA NC;ABDOMEN SOFT ON PALPATION AND ACTIVE IN ALL 4 QUADRANTS;WEAK PEDAL PULSES;SKIN INTACT;#22G TO LAC FLUSHED AND PATENT,SITE APPEARS HEALTHY;CONTACT PRECAUTIONS IN PLACE;PT DENIES ANY ADDITIONAL NEEDS AND IS ENCOURAGED TO CALL FOR ASSISTANCE IF NEEDED;FALL PRECAUTIONS IN PLACE WITH CALL LIGHT IN REACH;WILL CONTINUE TO MONITOR
[2019-08-05 08:51] VITALS: BP 138/63
--- NOTE | 2019-08-05 11:00 | NUR ---
[facility] SCORE TODAY: 11 POINTS PT WILL BENEFIT FROM IN-PT REHAB FOR LE STRENGTHENING, BALANCE AND GAIT TRAINING. PT ALSO MENTIONED TODAY THAT B UE FEEL WEAK TO NAVIGATE THE WALKER. REQUESTED TO HAVE HER USE A ROLLATOR NEXT TIME IT IS THE ONE SHE HAS BEEN USING IN THE SKILLED NURSING. FROM THE RECLINER, SHE SCOOTED AND STOOD UP WITH THE USE OF B HANDS TO PUSH SELF UP. THEN MAINTAINED STANDING BALANCE WITH RW. PT REPORTED PAIN ON R KNEE AND UNEVEN LEG LENGTHS (L LE 2.5 CM SHORTER AFTER HIP SX LONG TIME AGO) WHICH CAUSE SIGNIFICANT DIFFICULTY AMBULATING. PT MAY BENEFIT FROM ORTHO CONSULT REGARDING THIS MATTER THIS HAS NOT BEEN DONE BEFORE. WILL COORDINATE WITH BUFFY DARDEN AND DR. MCDERMOTT. SHE AMBULATED ~20 FT IN THE ROOM WITH RW AND CGA WITH CONSTANT COMPLAINT OF R KNEE PAIN AND DIFFICULTY USING THE RW. SHE RETURNED TO SIT IN THE RECLINER AT THE END OF ACTIVITY. NO ADVERSE RXNS NOTED OR REPORTED AT THE END OF TX.
--- NOTE | 2019-08-05 12:25 | NUR ---
PT REMAINS OOB RESTING IN RECLINER EATING LUNCH;RESPIRATIONS EVEN AND UNLABORED ON O2 @ 2L VIA NC;PT DENIES ANY CURRENT PAIN OR NEEDS;IV SITE PATENT;PT DENIES ANY ADDITIONAL NEEDS AT THIS TIME AND IS ENCOURAGED TO CALL FOR ASSISTANCE IF NEEDED;ASSESSMENT REMAINS UNCHANGED;CALL LIGHT IN REACH;WILL CONTINUE TO MONITOR
--- NOTE | 2019-08-05 12:59 | NUR ---
AT BEDSIDE DISCUSSING POC.
[2019-08-05 13:57] LABS: C. DIFFICILE TOXIN A&B NEGATIVE (NEGATIVE)
[2019-08-05 15:20] VITALS: BP 134/64
--- NOTE | 2019-08-05 15:43 | NUR ---
AT BEDSIDE DISCUSSING POC.
--- NOTE | 2019-08-05 16:00 | NUR ---
PT RESTING IN RECLINER;RESPIRATIONS EVEN AND UNLABORED ON O2 @ 2L VIA NC;PT DENIES ANY CURRENT PAIN OR DISCOMFORTS;IV ABX INFUSING WITH EASE;CONTACT PRECAUTIONS REMAIN IN PLACE;PT DENIES ANY ADDITIONAL NEEDS AND IS ENCOURAGED TO CALL FOR ASSISTANCE IF NEEDED;CALL LIGHT IN REACH;WILL CONTINUE TO MONITOR
--- NOTE | 2019-08-05 17:36 | NUR ---
IV SITE REMOVED WITH CATHETER INTACT DUE TO EXPIRATION DATE,NEW #22G STARTED TO RIGHT HAND ON SECOND ATTEMPT BY THIS WRITTER,PT TOLERATED WELL.
[2019-08-05 19:15] VITALS: BP 124/59
--- NOTE | 2019-08-05 21:08 | NUR ---
PT. SITTING UP IN BED WITH NO DISTRESS NOTED. ENCOURAGED USE OF INCENTIVE SPIROMETER. O2 INFUSING PER NC PER ORDER. REPOSITIONED INTO BED. SCHED MEDS GIVEN. IV SITE PATENT. BILATERAL HEELS ELEVATED ONTO PILLOW. SNACK PROVIDED. CALL LIGHT IS IN REACH. WILL CONTINUE TO MONITOR.
--- NOTE | 2019-08-05 21:55 | NUR ---
PT. REQUESTING FOR PRN KLONOPIN, MEDICATION FELL OFF EMAR. CALLED DESIGN RELEASE ENGINEER DR. ZION DELGADO, AND ORDER RENEWED AT THIS TIME.
--- NOTE | 2019-08-06 00:10 | NUR ---
PT. SITTING UP IN BED WITH NO DISTRESS NOTED. SCHED VANCO GIVEN AND PROVIDED WITH MOUTHSWABS. PT.DENIES FURTHER NEEDS. CALL LIGHT IS IN REACH.
--- NOTE | 2019-08-06 03:45 | NUR ---
PT. RESTING IN BED WITH EYES CLOSED; RESP. EVEN AND UNLABORED. CALL LIGHT IS IN REACH. WILL CONTINUE TO MONITOR.
[2019-08-06 03:55] VITALS: BP 109/53
--- NOTE | 2019-08-06 07:10 | NUR ---
REPORT RECEIVED FROM RUFINO TORRES;PT GETTING WASHED UP WITH ASSISTANCE FROM EDWIN GARCÍA;PT DENIES ANY CURRENT PAIN OR NEEDS;RESPIRATIONS EVEN AND UNLABORED ON O2 @ 2L VIA NC;PT ENCOURAGED TO CALL FOR ASSISTANCE IF NEEDED;FALL PRECAUTIONS IN PLACE WITH CALL LIGHT IN REACH;WILL CONTINUE TO MONITOR
--- NOTE | 2019-08-06 08:10 | NUR ---
PT RESTING IN RECLINER,A&O X3;VS OBTAINED AND ASSESSMENT COMPLETED;PT DENIES ANY CURRENT PAIN OR DISCOMFORTS,PAIN SCALE AND REPORTING EDUCATED;RESPIRATIONS EVEN AND UNLABORED,SHALLOW ON O2 @ 2L VIA NC;PRODUCTIVE COUGH AT TIMES;ABDOMEN SOFT ON PALPATION AND ACTIVE IN ALL 4 QUADRANTS;WEAK PEDAL PULSES;SKIN INTACT;#22G TO RIGHT HAND FLUSHED AND PATENT,SITE APPEARS HEALTHY;CONTACT PRECAUTIONS IN PLACE;PT DENIES ANY ADDITIONAL NEEDS AND IS ENCOURAGED TO CALL FOR ASSISTANCE IF NEEDED;CALL LIGHT IN REACH;WILL CONTINUE TO MONITOR
[2019-08-06 08:12] VITALS: BP 136/67
--- NOTE | 2019-08-06 09:43 | NUR ---
PHYSICAL THERAPY WORKING WITH PT.
--- NOTE | 2019-08-06 10:01 | NUR ---
PATIENT PERFORMED GAIT TRAINING USING WALKER WITHIN THE ROOM, 25 FEET, CGA/SBA FOR SAFETY. PATIENT IN APPARENT PAIN DISTRESS DUE TO SEVERE PAIN ON THE R KNEE. BRIEF REST PERIODS GIVEN DUE TO FATIGUE WITH MIN TO NO SOB NOTED AND PAIN. PATIENT PERFORMED STS FROM RECLINER, REQUIRED FEW ATTEMPTS BEFORE COMING TO A COMPLETE STANDING POSITION, CGA/SBA NEEDED FOR SAFETY. AMPAC = 14
--- NOTE | 2019-08-06 11:30 | NUR ---
AT BEDSIDE DISCUSSING POC INCLUDING PLANS TO BE D/C TO REHAB,PT VERBALIZES UNDERSTANDING.
[2019-08-06] MEDS ORDERED: VANCOMYCIN HCL125 M1 PO (11:31)
[2019-08-06] MEDS ORDERED: FLORASTOR250 M1 PO (11:31)
--- NOTE | 2019-08-06 12:05 | NUR ---
PT OOB RESTING IN RECLINER;RESPIRATIONS REMAIN EVEN AND UNLABORED ON O2 @ 2L VIA NC;PT DENIES ANY CURRENT PAIN OR NEEDS;IV SITE PATENT;PT MEDICATED WITH SCHEDULED VANCO PO;PT DENIES ANY ADDITIONAL NEEDS AND IS ENCOURAGED TO CALL FOR ASSISTANCE IF NEEDED;CALL LIGHT IN REACH;WILL CONTINUE TO MONITOR
--- NOTE | 2019-08-06 15:25 | NUR ---
PT OOB RESTING IN RECLINER;RESPIRATIONS EVEN AND UNLABORED ON O2 @ 2L VIA NC;PT DENIES ANY CURRENT PAIN OR NEEDS;IV SITE TO RIGHT HAND NOTED TO BE LEAKING,SITE REMOVED WITH CATHETER INTACT;PER LATISHA,ANRP IT IS OK TO LEAVE IV SITE OUT;PT DENIES ANY ADDITIONAL NEEDS AND IS ENCOURAGED TO CALL FOR ASSISTANCE IF NEEDED;FALL PRECAUTIONS IN PLACE WITH CALL LIGHT IN REACH;WILL CONTINUE TO MONITOR
[2019-08-06 15:31] VITALS: BP 139/51
--- NOTE | 2019-08-06 18:08 | NUR ---
SPOKE WITH GLORY FROM [facility].PT HAS BEEN ACCEPTED AND WILL BE PICKED UP BY [facility] STAFF AT 1999.
[2019-08-06 19:35] VITALS: BP 135/53
--- NOTE | 2019-08-06 19:47 | NUR ---
REPORT CALLED TO SUMIT CADENA AT [facility].PT TO BE TRANSPORTED TO REHAB AT APPROX 2000 BY REHAB STAFF.PT VERBALIZES UNDERSTANDING OF POC.
--- NOTE | 2019-08-06 20:20 | NUR ---
PT. LEFT VIA W/C ACCOMPANIED BY TECH FROM R AND ALONG WITH O2. PT. STABLE.
== END 2019-08-06 20:20 | DRG 371 ==
LOC: ED 04:57 → ED-I 05:20 → ED 09:56 → ICU 09:57 → MS2 17:51
PROVIDERS: Emergency Medicine; Family Medicine; Internal Medicine Infectious Disease; Nurse Practitioner Family; ADMIT Internal Medicine; ATTEND Internal Medicine
PROC: 3E0234Z Introduction of Serum, Toxoid and Vaccine into Muscle, Percutaneous Approach (ICD-10-PCS; principal; 2019-07-30)
DX: A04.72 Enterocolitis due to Clostridium difficile, not specified as recurrent (principal); J18.9 Pneumonia, unspecified organism; J96.21 Acute and chronic respiratory failure with hypoxia; G11.4 Hereditary spastic paraplegia; I10 Essential (primary) hypertension; I25.10 Atherosclerotic heart disease of native coronary artery without angina pectoris; E03.9 Hypothyroidism, unspecified; R32 Unspecified urinary incontinence; F41.9 Anxiety disorder, unspecified; Z95.5 Presence of coronary angioplasty implant and graft; Z87.891 Personal history of nicotine dependence; Z85.820 Personal history of malignant melanoma of skin; Z22.322 Carrier or suspected carrier of Methicillin resistant Staphylococcus aureus; Z23 Encounter for immunization
CPT/HCPCS: J1650

== ENCOUNTER 2019-08-17 08:16 | Inpatient (IN) | payer MEDICARE, BC ==
[~2019-08-17] VITALS: Ht 154.9 cm; Wt 62.1 kg
[~2019-08-17 08:16] MED LIST changes: +DITROPAN5 MG/TA1 PO; +LEVOTHYROXIN100 MCG PO; +VANCOMYCIN HCL125 M1 PO
[2019-08-17 09:17] LABS: HEMATOCRIT 37.2 % (37.0-47.0); HEMOGLOBIN 12.1 g/dl (12.0-16.0); IMMATURE GRANULOCYTES 0.4 % (0.0-5.0); MEAN CELL VOLUME 88.6 fL CALC (80.0-100.0); MEAN CORPUSCULAR HGB 28.8 pG CALC (26.0-32.0); MEAN CORPUSCULAR HGB CONC 32.5 g/L CALC (32.0-36.0); NEUT# 14.57 thou/uL (2.00-7.15); RED BLOOD COUNT 4.2 mill/uL (4.20-5.60); RED CELL DISTRI WIDTH 15.8 % (11.5-15.5)
[2019-08-17 09:28] LABS: ALKALINE PHOSPHATASE 77 u/l (38-126); ANION GAP 15 (6-22 (CALC)); BUN 13 mg/dL (8-23); BUN/CREATININE RATIO 13 (12-20 (CALC)); CARBON DIOXIDE 27 mmol/l (22-30); CHLORIDE 99 mmol/l (95-108); GFR 53 ML/MIN (>=60 (CALC)); GFR FOR AFR.AMER. > 60 ML/MIN (>=60 (CALC)); POTASSIUM 4.1 mmol/l (3.5-5.1); SGOT/AST 18 u/l (9-36); SODIUM 138 mmol/l (137-146)
[2019-08-17 09:33] LABS: ALBUMIN 4.2 g/dL (3.2-5.0); BILIRUBIN, TOTAL 0.6 mg/dL (0.0-1.4); TOTAL PROTEIN 7.8 g/dL (6.3-8.2)
[2019-08-17 09:40] LABS: MYOGLOBIN 46 ng/mL (0 - 62)
[2019-08-17 10:44] LABS: URINE BILIRUBIN - DIPSTICK NEGATIVE (NEGATIVE); URINE BLOOD DIPSTICK LARGE (NEGATIVE); URINE COLOR YELLOW; URINE GLUCOSE - DIPSTICK NEGATIVE (NEGATIVE); URINE KETONE NEGATIVE (NEGATIVE); URINE NITRITE - DIPSTICK NEGATIVE (Negative); URINE PROTEIN - DIPSTICK 100 mg/dL (NEG-TRACE); URINE UROBILINOGEN - DIPSTICK 0.2 E.U./dL (0.2)
[2019-08-17 10:48] LABS: URINE LEUK ESTERASE LARGE (NEGATIVE)
[2019-08-17 11:02] LABS: URINE BACTERIA MODERATE hpf; URINE RBC TNTC RBC/hpf (0-5); URINE SQUAMOUS EPITHELIAL CELL FEW EPI/hpf (0-FEW); URINE WBC TNTC WBC/hpf (0-5)
[2019-08-17 15:33] VITALS: BP 126/58
[2019-08-17 18:17] VITALS: BP 175/73
[2019-08-17 23:23] VITALS: BP 122/56
[2019-08-18] VITALS (7 sets, daily range): BP systolic 98–165; BP diastolic 49–68
[2019-08-18 08:07] LABS: HEMATOCRIT 37.5 % (37.0-47.0); HEMOGLOBIN 11.5 g/dl (12.0-16.0); MEAN CELL VOLUME 90.4 fL CALC (80.0-100.0); MEAN CORPUSCULAR HGB 27.7 pG CALC (26.0-32.0); MEAN CORPUSCULAR HGB CONC 30.7 g/L CALC (32.0-36.0); RED BLOOD COUNT 4.15 mill/uL (4.20-5.60); RED CELL DISTRI WIDTH 15.8 % (11.5-15.5)
[2019-08-18 08:27] LABS: ALBUMIN 3.4 g/dL (3.2-5.0); ALKALINE PHOSPHATASE 68 u/l (38-126); ANION GAP 11 (6-22 (CALC)); BILIRUBIN, TOTAL 0.6 mg/dL (0.0-1.4); BUN 10 mg/dL (8-23); BUN/CREATININE RATIO 11 (12-20 (CALC)); CARBON DIOXIDE 27 mmol/l (22-30); CHLORIDE 105 mmol/l (95-108); GFR 53 ML/MIN (>=60 (CALC)); GFR FOR AFR.AMER. > 60 ML/MIN (>=60 (CALC)); POTASSIUM 3.9 mmol/l (3.5-5.1); SGOT/AST 14 u/l (9-36); SODIUM 139 mmol/l (137-146)
[2019-08-18 08:30] LABS: TOTAL PROTEIN 6.2 g/dL (6.3-8.2)
[2019-08-19 04:10] VITALS: BP 125/51
[2019-08-19 07:34] VITALS: BP 137/71
[2019-08-19 10:01] LABS: HEMATOCRIT 40.9 % (37.0-47.0); HEMOGLOBIN 12.6 g/dl (12.0-16.0); IMMATURE GRANULOCYTES 0.3 % (0.0-5.0); MEAN CELL VOLUME 91.3 fL CALC (80.0-100.0); MEAN CORPUSCULAR HGB 28.1 pG CALC (26.0-32.0); MEAN CORPUSCULAR HGB CONC 30.8 g/L CALC (32.0-36.0); NEUT# 7.32 thou/uL (2.00-7.15); RED BLOOD COUNT 4.48 mill/uL (4.20-5.60); RED CELL DISTRI WIDTH 15.6 % (11.5-15.5)
[2019-08-19 15:24] VITALS: BP 157/61
[2019-08-19 18:50] VITALS: BP 148/51
[2019-08-20 03:40] VITALS: BP 137/64
[2019-08-20 07:36] VITALS: BP 146/56
[2019-08-20 15:37] VITALS: BP 135/62
[2019-08-20 18:37] VITALS: BP 154/56
[2019-08-21 03:16] VITALS: BP 103/57
[2019-08-21 07:35] VITALS: BP 152/48
[2019-08-21 15:47] VITALS: BP 133/56
[2019-08-21 18:36] VITALS: BP 143/63
[2019-08-22 03:59] VITALS: BP 128/59
[2019-08-22 09:00] VITALS: BP 144/72
[2019-08-22 15:05] VITALS: BP 136/66
[2019-08-22 19:40] VITALS: BP 153/67
[2019-08-23 04:00] VITALS: BP 121/62
[2019-08-23 08:58] VITALS: BP 128/68
[2019-08-23 09:02] VITALS: BP 128/68
[2019-08-23] MEDS ORDERED: CIPROFLOXACIN500 M1 PO (11:25)
[2019-08-23] MEDS ORDERED: FLORASTOR250 M1 PO (11:25)
[2019-08-23] MEDS ORDERED: FIRVANQ25 MG/ML PO (11:25)
[2019-08-23] MEDS ORDERED: KLONOPIN2 MG PO (11:25)
== END 2019-08-23 15:14 | DRG 689 ==
LOC: ED 08:16 → ED-I 12:35 → ED 12:57 → MS2 12:58
PROVIDERS: Emergency Medicine; Nurse Practitioner Family; ADMIT Internal Medicine; ATTEND Internal Medicine
DX: N39.0 Urinary tract infection, site not specified (principal); J96.21 Acute and chronic respiratory failure with hypoxia; G11.4 Hereditary spastic paraplegia; A04.72 Enterocolitis due to Clostridium difficile, not specified as recurrent; I12.9 Hypertensive chronic kidney disease with stage 1 through stage 4 chronic kidney disease, or unspecified chronic kidney disease; N18.3 Chronic kidney disease, stage 3 (moderate); I25.10 Atherosclerotic heart disease of native coronary artery without angina pectoris; E86.0 Dehydration; E03.9 Hypothyroidism, unspecified; L50.9 Urticaria, unspecified; M62.81 Muscle weakness (generalized); B96.5 Pseudomonas (aeruginosa) (mallei) (pseudomallei) as the cause of diseases classified elsewhere; I25.2 Old myocardial infarction; Z99.81 Dependence on supplemental oxygen; Z87.891 Personal history of nicotine dependence; Z95.5 Presence of coronary angioplasty implant and graft
CPT/HCPCS: J1650; Q9967

== ENCOUNTER 2019-09-20 | Emergency (ER) | payer MEDICARE, BC ==
[~2019-09-20] MED LIST changes: +CIPROFLOXACIN500 M1 PO; +FIRVANQ25 MG/ML PO
== END 2019-09-20 22:23 ==
DX: S00.03XA Contusion of scalp, initial encounter (principal); I10 Essential (primary) hypertension; I25.10 Atherosclerotic heart disease of native coronary artery without angina pectoris; E03.9 Hypothyroidism, unspecified; G11.4 Hereditary spastic paraplegia; I25.2 Old myocardial infarction; W18.39XA Other fall on same level, initial encounter; Y92.099 Unspecified place in other non-institutional residence as the place of occurrence of the external cause

== ENCOUNTER 2019-09-21 | Emergency (ER) | payer MEDICARE, BC ==
[2019-09-21 06:13] LABS: IMMATURE GRANULOCYTES 0.2 % (0.0-5.0); MEAN CELL VOLUME 87.4 fL CALC (80.0-100.0); MEAN CORPUSCULAR HGB 27.7 pG CALC (26.0-32.0); MEAN CORPUSCULAR HGB CONC 31.8 g/L CALC (32.0-36.0); NEUT# 9.19 thou/uL (2.00-7.15); RED BLOOD COUNT 3.64 mill/uL (4.20-5.60); RED CELL DISTRI WIDTH 15.6 % (11.5-15.5)
[2019-09-21 06:16] LABS: HEMATOCRIT 31.8 % (37.0-47.0); HEMOGLOBIN 10.1 g/dl (12.0-16.0)
[2019-09-21 06:36] LABS: PROTHROMBIN TIME 10.4 SECONDS (9.0-12.5)
[2019-09-21 06:47] LABS: ALBUMIN 3.5 g/dL (3.2-5.0); ALKALINE PHOSPHATASE 72 u/l (38-126); ANION GAP 9 (6-22 (CALC)); BILIRUBIN, TOTAL 0.6 mg/dL (0.0-1.4); BUN 21 mg/dL (8-23); BUN/CREATININE RATIO 29 (12-20 (CALC)); CARBON DIOXIDE 32 mmol/l (22-30); CHLORIDE 101 mmol/l (95-108); CREATININE 0.7 mg/dL (0.5-1.0); GFR > 60 ML/MIN (>=60 (CALC)); GFR FOR AFR.AMER. > 60 ML/MIN (>=60 (CALC)); SGOT/AST 15 u/l (9-36); SODIUM 138 mmol/l (137-146); TOTAL PROTEIN 6.4 g/dL (6.3-8.2)
== END 2019-09-21 08:16 | disposition short-term general hospital (02) ==
PROVIDERS: Emergency Medicine
PROC: 2W3QX1Z Immobilization of Right Lower Leg using Splint (ICD-10-PCS; principal; 2019-09-21)
DX: S82.101A Unspecified fracture of upper end of right tibia, initial encounter for closed fracture (principal); S82.831A Other fracture of upper and lower end of right fibula, initial encounter for closed fracture; I10 Essential (primary) hypertension; I25.10 Atherosclerotic heart disease of native coronary artery without angina pectoris; I25.2 Old myocardial infarction; E03.9 Hypothyroidism, unspecified; G11.4 Hereditary spastic paraplegia; W19.XXXA Unspecified fall, initial encounter

== ENCOUNTER 2021-06-22 22:49 | Emergency (ER) | payer MEDICARE, BC, OTHER ==
[~2021-06-22] VITALS: Ht 154.9 cm; Wt 70.0 kg
[~2021-06-22 22:49] MED LIST changes: -ADLT ASA LOW81 MG PO; +BL ASPIRIN325 MG PO; -LEVOTHYROXIN100 MCG PO; +LEVOTHYROXIN137 MCG PO
[2021-06-22] MEDS ORDERED: ANORO ELLIPTA 61 AER IN (23:13)
[2021-06-22] MEDS ORDERED: BIOTIN1000 MCG PO (23:15)
[2021-06-22] MEDS ORDERED: PLAVIX75 MG PO (23:17)
[2021-06-22] MEDS ORDERED: KLONOPIN1 MG PO (23:17)
[2021-06-22] MEDS ORDERED: MIACALCIN200 UNIT/A NAB (23:25)
[2021-06-22] MEDS ORDERED: PROBIOTI2 PO (23:27)
[2021-06-22] MEDS ORDERED: SENNA/DSS1 TAB PO (23:28)
[2021-06-22] MEDS ORDERED: WELLBUTRIN XL150 MG PO (23:29)
[2021-06-22 23:47] LABS: HEMOGLOBIN 11.9 g/dl (12.0-16.0); IMMATURE GRANULOCYTES 0.2 % (0.0-5.0); MEAN CORPUSCULAR HGB 28.8 pG CALC (26.0-32.0); NEUT# 8.82 thou/uL (2.00-7.15); RED BLOOD COUNT 4.13 mill/uL (4.20-5.60)
[2021-06-22 23:48] LABS: HEMATOCRIT 39.7 % (37.0-47.0); MEAN CELL VOLUME 96.1 fL CALC (80.0-100.0)
[2021-06-23 00:16] LABS: ALBUMIN 3.9 g/dL (3.2-5.0); AMYLASE 63 u/l (30-110); ANION GAP 11 (6-22 (CALC)); BILIRUBIN, TOTAL 0.4 mg/dL (0.0-1.4); BUN 23 mg/dL (8-23); BUN/CREATININE RATIO 18 (12-20 (CALC)); CARBON DIOXIDE 28 mmol/l (22-30); CHLORIDE 103 mmol/l (95-108); CREATININE 1.3 mg/dL (0.5-1.0); GFR 39 ML/MIN (>=60 (CALC)); GFR FOR AFR.AMER. 47 ML/MIN (>=60 (CALC)); LIPASE 209 u/l (23-300); POTASSIUM 4.3 mmol/l (3.5-5.1); SGOT/AST 18 u/l (9-36); SODIUM 138 mmol/l (137-146)
[2021-06-23 00:18] LABS: ALKALINE PHOSPHATASE 129 u/l (38-126); TOTAL PROTEIN 7.9 g/dL (6.3-8.2)
[2021-06-23 01:27] LABS: URINE BILIRUBIN - DIPSTICK NEGATIVE (NEGATIVE); URINE BLOOD DIPSTICK SMALL (NEGATIVE); URINE GLUCOSE - DIPSTICK NEGATIVE (NEGATIVE); URINE KETONE NEGATIVE (NEGATIVE); URINE PROTEIN - DIPSTICK >=300 mg/dL (NEG-TRACE); URINE SPECIFIC GRAVITY 1.015; URINE UROBILINOGEN - DIPSTICK 0.2 E.U./dL (0.2)
[2021-06-23 01:31] LABS: URINE COLOR YELLOW; URINE LEUK ESTERASE MODERATE (NEGATIVE); URINE NITRITE - DIPSTICK POSITIVE (Negative)
[2021-06-23 01:32] LABS: URINE BACTERIA MANY hpf; URINE CALCIUM OXALATE CRYSTALS FEW lpf; URINE WBC >100 WBC/hpf (0-5)
[2021-06-23 03:50] VITALS: BP 153/64
== END 2021-06-23 03:50 | disposition short-term general hospital (02) ==
LOC: ED 22:49
PROVIDERS: Emergency Medicine
PROC: 0T9B70Z Drainage of Bladder with Drainage Device, Via Natural or Artificial Opening (ICD-10-PCS; principal; 2021-06-23)
DX: N13.6 Pyonephrosis (principal); N17.9 Acute kidney failure, unspecified; R33.9 Retention of urine, unspecified; I10 Essential (primary) hypertension; I25.10 Atherosclerotic heart disease of native coronary artery without angina pectoris; I25.2 Old myocardial infarction; E03.9 Hypothyroidism, unspecified; G11.4 Hereditary spastic paraplegia; B96.89 Other specified bacterial agents as the cause of diseases classified elsewhere; Z20.822 Contact with and (suspected) exposure to COVID-19
CPT/HCPCS: J2060; Q9967

== ENCOUNTER 2021-07-26 21:14 | Emergency (ER) | payer MEDICARE, BC, OTHER ==
[~2021-07-26] VITALS: Ht 154.9 cm; Wt 68.0 kg
[~2021-07-26 21:14] MED LIST changes: +ANORO ELLIPTA 61 AER IN; +BIOTIN1000 MCG PO; +KLONOPIN1 MG PO; +MIACALCIN200 UNIT/A NAB; +PLAVIX75 MG PO; +PROBIOTI2 PO; +SENNA/DSS1 TAB PO; +WELLBUTRIN XL150 MG PO
[2021-07-26 22:22] LABS: HEMATOCRIT 41.6 % (37.0-47.0); HEMOGLOBIN 12.8 g/dl (12.0-16.0); IMMATURE GRANULOCYTES 0.3 % (0.0-5.0); MEAN CELL VOLUME 93.9 fL CALC (80.0-100.0); MEAN CORPUSCULAR HGB 28.9 pG CALC (26.0-32.0); MEAN CORPUSCULAR HGB CONC 30.8 g/dL CAL (32.0-36.0); NEUT# 12.47 thou/uL (2.00-7.15); RED BLOOD COUNT 4.43 mill/uL (4.20-5.60); RED CELL DISTRI WIDTH 14.2 % (11.5-15.5)
[2021-07-26 22:37] LABS: ALKALINE PHOSPHATASE 136 u/l (38-126); ANION GAP 11 (6-22 (CALC)); BILIRUBIN, TOTAL 0.4 mg/dL (0.0-1.4); BUN 31 mg/dL (8-23); BUN/CREATININE RATIO 28 (12-20 (CALC)); CARBON DIOXIDE 28 mmol/l (22-30); CHLORIDE 101 mmol/l (95-108); CREATININE 1.1 mg/dL (0.5-1.0); GFR 47 ML/MIN (>=60 (CALC)); GFR FOR AFR.AMER. 57 ML/MIN (>=60 (CALC)); LIPASE 475 u/l (23-300); POTASSIUM 4.9 mmol/l (3.5-5.1); SGOT/AST 20 u/l (9-36); SODIUM 135 mmol/l (137-146); TOTAL PROTEIN 7.8 g/dL (6.3-8.2)
[2021-07-27] MEDS ORDERED: FLEXERIL5 M1 PO (02:57)
[2021-07-27] MEDS ORDERED: LEVOTHYROXIN125 MCG PO (02:59)
[2021-07-27] MEDS ORDERED: PREDNISONE5 MG PO (03:01)
[2021-07-27] MEDS ORDERED: SYMBICORT1 AE1 IN (03:08)
[2021-07-27 04:24] LABS: URINE BILIRUBIN - DIPSTICK NEGATIVE (NEGATIVE); URINE BLOOD DIPSTICK SMALL (NEGATIVE); URINE COLOR YELLOW; URINE GLUCOSE - DIPSTICK NEGATIVE (NEGATIVE); URINE PROTEIN - DIPSTICK TRACE mg/dL (NEG-TRACE); URINE UROBILINOGEN - DIPSTICK 0.2 E.U./dL (0.2)
[2021-07-27 04:25] LABS: URINE KETONE Negative (NEGATIVE); URINE LEUK ESTERASE MODERATE (NEGATIVE); URINE NITRITE - DIPSTICK POSITIVE (Negative)
[2021-07-27 04:28] LABS: URINE WBC >100 WBC/hpf (0-5)
[2021-07-27 04:29] LABS: URINE BACTERIA MANY hpf; URINE EPITHELIAL CELLS MODERATE EPI/hpf (0-FEW)
[2021-07-27] MEDS ORDERED: KEFLEX500 MG PO (04:36)
[2021-07-27] MEDS ORDERED: ZOFRAN4 MG/TAB PO (04:37)
[2021-07-27 07:06] VITALS: BP 164/77
== END 2021-07-27 09:14 | disposition home or self-care (01) ==
LOC: ED 21:14
PROVIDERS: Emergency Medicine
PROC: 0T9B70Z Drainage of Bladder with Drainage Device, Via Natural or Artificial Opening (ICD-10-PCS; principal; 2021-07-26)
DX: R33.9 Retention of urine, unspecified (principal); N39.0 Urinary tract infection, site not specified; R11.2 Nausea with vomiting, unspecified; R19.7 Diarrhea, unspecified; I10 Essential (primary) hypertension; I25.10 Atherosclerotic heart disease of native coronary artery without angina pectoris; E03.9 Hypothyroidism, unspecified; G11.4 Hereditary spastic paraplegia; I25.2 Old myocardial infarction
CPT/HCPCS: Q9967

== ENCOUNTER 2021-11-08 00:12 | Emergency (ER) | payer MEDICARE, BC, OTHER ==
[~2021-11-08] VITALS: Ht 154.9 cm; Wt 57.0 kg
[2021-11-08] VITALS (8 sets, daily range): BP systolic 87–148; BP diastolic 28–66
[~2021-11-08 00:12] MED LIST changes: +FLEXERIL5 M1 PO; +KEFLEX500 MG PO; +LEVOTHYROXIN125 MCG PO; +PREDNISONE5 MG PO; +SYMBICORT1 AE1 IN; +ZOFRAN4 MG/TAB PO
[2021-11-08 01:35] LABS: HEMATOCRIT 37.5 % (37.0-47.0); IMMATURE GRANULOCYTES 0.2 % (0.0-5.0); MEAN CELL VOLUME 99.5 fL CALC (80.0-100.0); MEAN CORPUSCULAR HGB 29.2 pG CALC (26.0-32.0); MEAN CORPUSCULAR HGB CONC 29.3 g/dL CAL (32.0-36.0); NEUT# 7.03 thou/uL (2.00-7.15); RED BLOOD COUNT 3.77 mill/uL (4.20-5.60); RED CELL DISTRI WIDTH 14.7 % (11.5-15.5)
[2021-11-08 01:47] LABS: ALBUMIN 3.3 g/dL (3.2-5.0); ALKALINE PHOSPHATASE 98 u/l (38-126); ANION GAP 12 (6-22 (CALC)); BUN 27 mg/dL (8-23); BUN/CREATININE RATIO 20 (12-20 (CALC)); CARBON DIOXIDE 27 mmol/l (22-30); CHLORIDE 104 mmol/l (95-108); CREATININE 1.3 mg/dL (0.5-1.0); GFR 39 ML/MIN (>=60 (CALC)); GFR FOR AFR.AMER. 47 ML/MIN (>=60 (CALC)); POTASSIUM 4.6 mmol/l (3.5-5.1); SGOT/AST 17 u/l (9-36); SODIUM 139 mmol/l (137-146); TOTAL PROTEIN 6.3 g/dL (6.3-8.2)
[2021-11-08 01:48] LABS: BILIRUBIN, TOTAL 0.2 mg/dL (0.0-1.4); CPK < 20 u/l (30-165)
[2021-11-08 01:52] LABS: ACT PARTIAL THROMBO TIME 25.4 SECONDS (20.0-32.5)
== END 2021-11-08 07:49 | disposition home or self-care (01) ==
LOC: ED 00:12
PROVIDERS: Family Medicine
DX: I73.9 Peripheral vascular disease, unspecified (principal)
CPT/HCPCS: Q9967